=== PATIENT | male | born 1975 | race Caucasian/White ===

== ENCOUNTER 2018-09-05 17:04 | Emergency (ER) | payer BC ==
--- NOTE | 2018-09-05 18:12 | UC ---
Eye Complaint HPI - HPI Summary HPI Summary: 43 y/o male presents to the urgent care c/o L eye redness and drainage x 2 days; sore throat x 6 days. Denies any fever. - History of Current Complaint Chief Complaint: UCEye Stated Complaint: eye complaint Time Seen by Provider: 09/05/18 18:07 Hx Obtained From: Patient Onset/Duration: Gradual Onset, Lasting Days - 6 days, Still Present, Worse Since - 2 days Timing: Intermittent Episode Lasting Severity Initially: Mild Severity Currently: Mild Pain Intensity: 0 Pain Scale Used: 0-10 Numeric Location of Injury: Conjunctiva - left eye w/ mild drainage Character: Foreign Body Sensation Aggravating Factor(s): Blinking Alleviating Factor(s): Nothing Associated Signs And Symptoms: Positive: Drainage (Purulent) - mild yellowish in the morning. Negative: Fever, Swelling - Risk Factors Penetrating Injury Risk Factor: Negative Globe Rupture Risk Factors: Negative Acute Glaucoma Risk Factors: Negative Optic Artery Occlusion Risk Factors: Negative - Allergies/Home Medications Allergies/Adverse Reactions: Allergies Allergy/AdvReac Type Severity Reaction Status Date / Time No Known Allergies Allergy Verified 09/05/18 17:36 Home Medications: Home Medications D-Methorphan/PE/Acetaminophen [Daytime Cold-Flu Relief Sftgl] 1 each PO Q12HR PRN 09/05/18 [History Confirmed 09/05/18] PMH/Surg Hx/FS Hx/Imm Hx Previously Healthy: Yes - Pt denies PMHX - Surgical History Surgical History: None - Family History Known Family History: Positive: None - Pt denies FMHX - Social History Occupation: Employed Full-time Lives: With Family Alcohol Use: Rare Substance Use Type: None Smoking Status (MU): Never Smoked Tobacco Review of Systems All Other Systems Reviewed And Are Negative: Yes Constitutional: Positive: Negative Skin: Positive: Negative Eyes: Positive: Drainage - yellowish, Eye Redness - left eye ENT: Positive: Sore Throat, Nasal Discharge - clear Respiratory: Positive: Cough - dry Cardiovascular: Positive: Negative Gastrointestinal: Positive: Negative Genitourinary: Positive: Negative Motor: Positive: Negative Neurovascular: Positive: Negative Musculoskeletal: Positive: Negative Neurological: Positive: Negative Psychological: Positive: Negative Is Patient Immunocompromised?: No Physical Exam - Summary Physical Exam Summary: Vital Signs Reviewed: Yes General: Well appearing, well nourished male in no apparent pain distress Eyes: Positive: Conjunctiva Inflamed - Visual acuity: WNL,Visual nichole: full to confrontation.mild periorbital soft tissue swelling at the RT upper eyelid with erythema and white small pustule in the medial side of eyelid, tender to palpation. PERRLA, EOMI intact w/out limitation or complaint of pain. eyelashes clear. mild tearing and yellowish drainage observed. No ciliary flush. No chemosis, No photophobia. Normal fundoscopic exam; no proptosis, exophthalmos, nystagmus. ENT: Positive: Normal ENT inspection, Hearing grossly normal, Pharynx normal, Nasal congestion, Nasal drainage - clear, TMs normal - B/L external ear canal clear , TM's WNL. Negative: Tonsillar swelling, Tonsillar exudate Neck: Positive: Supple, Nontender, No Lymphadenopathy Respiratory: Positive: Chest nontender, Lungs clear, Normal breath sounds, No respiratory distress Cardiovascular: Positive: RRR, No Murmur, Pulses Normal, Brisk Capillary Refill Abdomen Description: Positive: Nontender, No Organomegaly, Soft. Negative: CVA Tenderness (R), CVA Tenderness (L) Bowel Sounds: Positive: Present Musculoskeletal: Positive: Strength Intact, ROM Intact, No Edema Neurological Exam: Normal Psychological Exam: Normal Skin Exam: Normal Triage Information Reviewed: Yes Vital Signs: Initial Vital Signs Temp 98.7 F 09/05/18 17:37 Pulse 58 09/05/18 17:37 Resp 18 09/05/18 17:37 BP 110/63 09/05/18 17:37 Pulse Ox 98 09/05/18 17:37 Eye Complaint Course/Dx - Differential Dx/Diagnosis Differential Diagnosis/HQI/PQRI: Conjunctivitis, Periorbital Cellulitis, Orbital Cellulitis, Other - pharyngitis , influenza Provider Diagnosis: Pharyngitis Discharge - Sign-Out/Discharge Documenting (check all that apply): Patient Departure - d/c home All imaging exams completed and their final reports reviewed: No Studies - Discharge Plan Condition: Stable Disposition: HOME Prescriptions: Ciprofloxacin 0.3% OPTH.GREGORY* [Cipro 0.3% Opth*] 1 drop LEFT EYE Q2H #1 btl Patient Education Materials: Pharyngitis (ED), Conjunctivitis (ED) Referrals: [facility] [place] [facility] [Outside] - 3 Days Additional Instructions: 1-Please apply ophthalmic drops as instructed and finish the full course of treatment to avoid recurrent infection. 2--Please take ibuprofen PO q6-8hrs prn as instructed after meals to alleviate sore throat and swelling. Increase fluid intake, eat well, rest and avoid strenuous exercise 3-If you do not improve or if symptoms worsen please f/u with hr clerk DR Lemus or your PCP in 2-3 days for further evaluation and treatment - Billing Disposition and Condition Condition: STABLE Disposition: Home
== END 2018-09-05 18:30 | disposition home or self-care (01) ==
LOC: UCEAST 17:04
DX: J02.9 Acute pharyngitis, unspecified (principal); H57.89 Other specified disorders of eye and adnexa
CPT/HCPCS: 87651; 99202; G0463

== ENCOUNTER 2018-12-09 11:04 | Emergency (ER) | payer BC ==
[2018-12-09 12:05] VITALS: BP 110/72
--- NOTE | 2018-12-09 12:15 | ED ---
Back Pain - HPI Summary HPI Summary: Patient is a 43-year-old otherwise healthy male presenting to the ED with left- sided mid back pain which occurred yesterday after lifting heavy boxes. He denies any numbness or tingling in the bilateral lower extremities. Symptoms are worse with ambulation and better with sitting and lying flat. Symptoms are better with heat and worse with standing. He is able to rotate the hips, however with pain. Denies any pain directly over the spine or weakness to the bilateral lower extremities. He has never had anything like this before. - History of Current Complaint Chief Complaint: EDBackInjuryPain Stated Complaint: BACK PAIN PER PT Time Seen by Provider: 12/09/18 11:14 Hx Obtained From: Patient Onset/Duration: Gradual Onset Onset/Duration: Started Hours Ago Timing: Constant Back Pain Location: Is Discrete @ - left midback Severity Initially: Moderate Severity Currently: Moderate Pain Intensity: 4 Pain Scale Used: 0-10 Numeric Character: Aching Aggravating Symptom(s): Movement Alleviating Symptom(s): Rest, Position Associated Signs And Symptoms: Negative: Swelling, Redness, Bruising, Fever, Weakness, Numbness, Bladder Incontinence, Bowel Incontinence, Weight Loss, Pain with Weight Bearing - Risk Factors AAA Risk Factors: Negative TAD Risk Factors: Negative Cauda Equina Risk Factors: Negative Epidural Abscess Risk Factors: Negative - Allergies/Home Medications Allergies/Adverse Reactions: Allergies Allergy/AdvReac Type Severity Reaction Status Date / Time No Known Allergies Allergy Verified 12/09/18 11:11 Home Medications: Home Medications Ibuprofen 400 mg PO Q6H PRN 12/09/18 [History Confirmed 12/09/18] PMH/Surg Hx/FS Hx/Imm Hx Previously Healthy: Yes - Immunization History Hx Pertussis Vaccination: No Immunizations Up to Date: Yes Infectious Disease History: No Infectious Disease History: Denies: Traveled Outside the [place] in Last 30 Days - Family History Known Family History: Positive: None - Pt denies FMHX - Social History Occupation: Employed Full-time Lives: With Family Alcohol Use: Rare Hx Substance Use: No Substance Use Type: Reports: None Hx Tobacco Use: No Smoking Status (MU): Never Smoked Tobacco Review of Systems Constitutional: Negative Negative: Fever, Chills, Fatigue Negative: Palpitations, Chest Pain Negative: Shortness Of Breath, Cough Positive: see HPI. Negative: burning, frequency, flank pain, hematuria Positive: Arthralgia - left sided mid back pain Skin: Negative Neurological: Negative All Other Systems Reviewed And Are Negative: Yes Physical Exam Triage Information Reviewed: Yes Vital Signs On Initial Exam: Initial Vitals Temp Pulse Resp BP Pulse Ox 98.1 F 77 16 141/87 96 12/09/18 11:09 12/09/18 11:09 12/09/18 11:09 12/09/18 11:09 12/09/18 11:09 Vital Signs Reviewed: Yes Appearance: Positive: Well-Appearing, Well-Nourished Skin: Positive: Warm, Skin Color Reflects Adequate Perfusion Head/Face: Positive: Normal Head/Face Inspection Eyes: Positive: EOMI, Conjunctiva Clear Neck: Positive: Supple, No Lymphadenopathy Respiratory/Lung Sounds: Positive: Clear to Auscultation, Breath Sounds Present Cardiovascular: Positive: RRR, Pulses are Symmetrical in both Upper and Lower Extremities Musculoskeletal: Positive: Strength/ROM Intact, Pain @ - left mid back pain Neurological: Positive: Normal, Sensory/Motor Intact, Alert, Oriented to Person Place, Time, Facial Symmetry Psychiatric: Positive: Affect/Mood Appropriate AVPU Assessment: Alert Diagnostics - Vital Signs Vital Signs Temp Pulse Resp BP Pulse Ox 12/09/18 12:04 98.3 F 54 16 110/72 99 12/09/18 11:09 98.1 F 77 16 141/87 96 - Laboratory Lab Statement: Any lab studies that have been ordered have been reviewed, and results considered in the medical decision making process. Back Pain Course/Dx - Course Course Of Treatment: Patient is evaluated for left-sided mid back pain. No pain over the sciatic notch on palpation. There is no signs of trauma. No numbness or tingling to the bilateral lower extremities. Patient is able to stand and flex at the hips. Able to rotate from side to side at the hips with mild amount of discomfort. No signs of trauma. No foot drop noted. No numbness or tingling throughout the bilateral lower extremity's. No bladder or bowel dysfunction. Patient will be diagnosed with muscle strain of the back. He is given prednisone and Flexeril. No given for work. - Diagnoses Provider Diagnoses: Mid back pain on left side Discharge - Sign-Out/Discharge Documenting (check all that apply): Patient Departure Patient Received Moderate/Deep Sedation with Procedure: No - Discharge Plan Condition: Stable Disposition: HOME Prescriptions: Cyclobenzaprine TAB* [Flexeril TAB*] 10 mg PO BID PRN #10 tab MDD 2 PRN Reason: Spasms predniSONE TAB* [Deltasone TAB*] 50 mg PO DAILY #5 tab MDD 1 Patient Education Materials: Muscle Strain (ED), Muscle Spasm (ED) Forms: *Work Release Referrals: No Primary Care Phys,NOPCP [Primary Care Provider] - Additional Instructions: Moist heat to the area as much as possible Out of work 2 days Flexeril may be taken up to 3 times daily Prednisone once daily in the morning - take this when you get home - Billing Disposition and Condition Condition: STABLE Disposition: Home
== END 2018-12-09 12:04 | disposition home or self-care (01) ==
LOC: ED 11:04
DX: M54.6 Pain in thoracic spine (principal)
CPT/HCPCS: 99282

== ENCOUNTER 2019-06-15 09:28 | Emergency (ER) | payer BC ==
[2019-06-15 09:36] VITALS: BP 113/79
--- NOTE | 2019-06-15 09:43 | UC ---
Back Pain HPI - HPI Summary HPI Summary: right side low back pain and muscle tighness began last night after doing yard work no numbness or tingling down leg--no neurodeficits - History of Current Complaint Chief Complaint: UCBackPain Stated Complaint: back PAIN Time Seen by Provider: 06/15/19 09:39 Hx Obtained From: Patient Onset/Duration: Sudden Onset, Lasting Days - 1 Timing: Constant Pain Intensity: 8 Pain Scale Used: 0-10 Numeric Back Pain: Is Discrete @ - right lower side of back Character: Aching Aggravating Factor(s): Movement, Lifting, Bending Alleviating Factor(s): Rest, Position, Heat, Other - took wifes ultram and flexeril with relief last night Associated Signs And Symptoms: Negative: Numbness, Tingling - Allergies/Home Medications Allergies/Adverse Reactions: Allergies Allergy/AdvReac Type Severity Reaction Status Date / Time No Known Allergies Allergy Verified 06/15/19 09:36 PMH/Surg Hx/FS Hx/Imm Hx Previously Healthy: Yes - Surgical History Surgical History: None - Family History Known Family History: Positive: None - Pt denies FMHX - Social History Occupation: Employed Full-time Lives: With Family Alcohol Use: Rare Substance Use Type: None Smoking Status (MU): Never Smoked Tobacco Review of Systems All Other Systems Reviewed And Are Negative: Yes Constitutional: Positive: Negative Skin: Positive: Negative Eyes: Positive: Negative ENT: Positive: Negative Respiratory: Positive: Negative Cardiovascular: Positive: Negative Gastrointestinal: Positive: Negative Genitourinary: Positive: Negative Motor: Positive: Negative Neurovascular: Positive: Negative Musculoskeletal: Positive: Myalgia - right side mid lower back Neurological: Positive: Negative Psychological: Positive: Negative Is Patient Immunocompromised?: No Physical Exam Triage Information Reviewed: Yes Appearance: Well-Appearing, Well-Nourished, Pain Distress Vital Signs: Initial Vital Signs Temp 97.6 F 06/15/19 09:30 Pulse 74 06/15/19 09:30 Resp 16 06/15/19 09:30 BP 113/79 06/15/19 09:30 Pulse Ox 100 06/15/19 09:30 Vital Signs Reviewed: Yes Eye Exam: Normal Eyes: Positive: Conjunctiva Clear ENT Exam: Normal ENT: Positive: Normal ENT inspection, Hearing grossly normal. Negative: Trismus , Muffled voice, Hoarse voice Dental Exam: Normal Neck exam: Normal Neck: Positive: Supple, Nontender Respiratory Exam: Normal Respiratory: Positive: Chest non-tender, No respiratory distress, No accessory muscle use Cardiovascular Exam: Normal Cardiovascular: Positive: RRR, Pulses Normal, Brisk Capillary Refill Abdomen Description: Negative: CVA Tenderness (R), CVA Tenderness (L) Musculoskeletal Exam: Normal Musculoskeletal: Positive: Strength Intact, No Edema, ROM Limited @ - lower back Neurological Exam: Normal Neurological: Positive: Alert, Muscle Tone Normal Psychological Exam: Normal Skin Exam: Normal Back Pain Course/Dx - Course Course Of Treatment: low back exercises, prednisone, flexeril, warm compress follow with pcp prn - referral provided - Differential Dx/Diagnosis Provider Diagnosis: Strain of lumbar region Discharge ED - Sign-Out/Discharge Documenting (check all that apply): Patient Departure All imaging exams completed and their final reports reviewed: No Studies - Discharge Plan Condition: Stable Disposition: HOME Prescriptions: Cyclobenzaprine TAB* [Flexeril 10 MG TAB*] 10 mg PO TID PRN #15 tab PRN Reason: muscle spasm predniSONE TAB* [Deltasone TAB*] 50 mg PO DAILY #5 tab Patient Education Materials: Low Back Strain (ED), Muscle Spasm (ED), Lower Back Exercises (ED) Forms: *Work Release Referrals: [facility] [place] [facility] [Outside] - If Needed - Billing Disposition and Condition Condition: STABLE Disposition: Home
== END 2019-06-15 09:58 | disposition home or self-care (01) ==
LOC: UCEAST 09:28
DX: S39.012A Strain of muscle, fascia and tendon of lower back, initial encounter (principal); X58.XXXA Exposure to other specified factors, initial encounter; Y93.89 Activity, other specified; Y92.017 Garden or yard in single-family (private) house as the place of occurrence of the external cause
CPT/HCPCS: 99212; G0463